=== PATIENT | female | born 1950 | race Caucasian/White ===

== ENCOUNTER 2022-11-05 20:25 | Emergency (ER) | payer MEDICARE, OTHER ==
[~2022-11-05 20:25] MED LIST: GASTROGRAFIN 30 ML BOT ONE
[2022-11-05] MEDS ORDERED: HYDROmorphone 2 MG TAB PO SCH (21:15)
[2022-11-05] MEDS ORDERED: HYDROmorphone 2 MG TAB ONE (21:26)
== END 2022-11-06 00:30 ==
LOC: NAV ERS 20:25
DX: K94.20 Gastrostomy complication, unspecified (principal); I10 Essential (primary) hypertension; I25.10 Atherosclerotic heart disease of native coronary artery without angina pectoris
CPT/HCPCS: 74018; 74019; Q9963

== ENCOUNTER 2022-12-03 15:37 | Emergency (ER) | payer MEDICARE, OTHER ==
[2022-12-03] MEDS ORDERED: Ketorolac Tromethamine 30 MG/ML VIAL ONE (17:34)
== END 2022-12-03 18:45 ==
LOC: NAV ERS 15:37
DX: S32.018A Other fracture of first lumbar vertebra, initial encounter for closed fracture (principal); S22.089A Unspecified fracture of T11-T12 vertebra, initial encounter for closed fracture; S51.012A Laceration without foreign body of left elbow, initial encounter; S09.90XA Unspecified injury of head, initial encounter; I25.10 Atherosclerotic heart disease of native coronary artery without angina pectoris; W19.XXXA Unspecified fall, initial encounter
CPT/HCPCS: 70450; 71045; 72125; 72128; 72131; 72170; 96372; J1885

== ENCOUNTER 2022-12-23 23:21 | Emergency (ER) | payer MEDICARE, OTHER ==
[2022-12-24 00:11] LABS: %Neutrophils 61.4 % (42.0-75.0); Hematocrit 33.2 % (36.0-47.0); Hemoglobin 10.2 g/dL (12.0-16.0); Manual Diff?? NO; Mean Corpuscular HGB CONC 30.9 g/dL (32.0-36.0); Mean Corpuscular Volume 87.5 fl (78.0-98.0); Mean Platelet Volume 6.6 fL (7.4-10.4); Platelet Count 256 10x3/uL (130-400); RBC Distribution Width 13.5 % (11.5-14.5)
[2022-12-24 00:12] LABS: #Basophils 0.1 thou/uL (0.0-0.2); #Eosinphils 0.1 thou/uL (0.0-0.7); #Lymphocytes 1.8 thou/uL (1.20-3.40); #Monocytes 0.4 thou/uL (0.11-0.59); #Neutrophils 3.7 thou/uL (1.40-6.50); %Lymphocytes 29.1 % (21.0-51.0); %Monocytes 7.4 % (0.0-10.0)
[2022-12-24 00:18] LABS: BUN (Urea Nitrogen) 23 mg/dL (9.8-20.1); Calc. Creatinine Clearance 0 mL/min (70-130); Calcium 9.3 mg/dL (7.6-10.4); Carbon Dioxide 31 mmol/L (23-31); Chloride 99 mmol/L (98-107); Estimated GFR 95; Glucose 77 mg/dL (80-115); Sodium 140 mmol/L (136-145)
[2022-12-24 00:19] LABS: ALT (SGPT) 18 U/L (8-55); AST (SGOT) 22 U/L (5-34); Albumin 3.4 g/dL (3.4-4.8); Alkaline Phosphatase 99 U/L (40-110); Bilirubin, Total 0.2 mg/dL (0.2-1.2); Globulin 3.1 g/dL (2.4-3.5); Protein, Total 6.5 g/dL (5.8-8.1)
[2022-12-24 00:20] LABS: Anion Gap 10 mmol/L (10-20)
[2022-12-24] MEDS ORDERED: HYDROmorphone 2 MG TAB ONE (00:23)
[2022-12-24 00:53] LABS: Bilirubin Negative (Negative); Blood, Urine Negative (Negative); Clarity Clear (Clear); Glucose, Urine (Dipstick) Negative (Negative); Ketone, Urine Negative (Negative); Leukocyte Moderate (Negative); Nitrite Negative (Negative); Protein, Urine (Dipstick) Negative (Neg-Trace); Specific Gravity, Urine 1.015 (1.005-1.030); Urobilinogen 0.2 mg/dL (Less than 2)
[2022-12-24 00:54] LABS: CAUTI Indications for Culture Alt mental st,lethar; Squamous Epithelial 0-3 HPF (0-3)
[2022-12-24 00:55] LABS: Urine Culture Reflex No No
[2022-12-24] MEDS ORDERED: Lorazepam 0.5 MG TAB ONE (04:03)
[2022-12-24] MEDS ORDERED: Clopidogrel Bisulfate 75 MG TAB ONE (07:45)
[2022-12-24] MEDS ORDERED: OLANZapine 5 MG TAB ONE (07:45)
[2022-12-24] MEDS ORDERED: Pantoprazole 40 MG VIAL ONE (07:52)
[2022-12-24] MEDS ORDERED: Valproate Sodium 250 mg/5 ml UD Cup PO SCH (08:00)
== END 2022-12-24 08:24 ==
LOC: NAV ERS 23:21
DX: S00.93XA Contusion of unspecified part of head, initial encounter (principal); M17.11 Unilateral primary osteoarthritis, right knee; I10 Essential (primary) hypertension; W19.XXXA Unspecified fall, initial encounter
CPT/HCPCS: 51701; 70450; 80053; 81001; 85025; 87086; 96374; C9113